=== PATIENT | male | born 1955 | race Caucasian/White ===

== ENCOUNTER → 2023-06-23 | Emergency (ER) | payer OTHER ==
--- NOTE | 2023-06-23 09:12 | EDPHYS ---
Physician Documentation [facility] Name: Giuliano Campos Age: 67 yrs Sex: Male : 1955 Arrival Date: 06/23/2023 Time: 08:25 Bed 6 Private MD: ED Physician Barbie Mills HPI: 06/23 08:42 This 67 yrs old Male presents to ER via Unassigned with complaints of Fall Injury, sp3 abrasion To Arm and left knee injury. 08:42 67-year-old male with a history of atrial fibrillation currently on Eliquis, sp3 hypertension, hyperlipidemia now presents to the ED with chief complaint mechanical fall while at a local hotel after he got up to use the restroom. Patient tripped on his shoe and then fell on his left knee and left forearm with abrasions to both and swollen knee. He denies any right-sided extremity injury, head injury, loss of consciousness, medical prodrome including chest pain, shortness of breath or syncope. Remainder of ROS is negative.. Historical: - Allergies: 08:49 No Known Allergies; ss - PMHx: 08:49 Atrial fibrillation; Hypertensive disorder; Asthma; Sleep apnea; ss - Immunization history:: Client reports receiving the 2nd dose of the Covid vaccine. - Social history:: Smoking status: Patient reports the use of cigarette tobacco products, <1/2 ppd. ROS: 08:43 Constitutional: Negative for fever, chills, and weight loss, Eyes: Negative for injury, sp3 pain, redness, and discharge, ENT: Negative for injury, pain, and discharge, Neck: Negative for injury, pain, and swelling, Respiratory: Negative for shortness of breath, cough, wheezing, and pleuritic chest pain, Abdomen/GI: Negative for abdominal pain, nausea, vomiting, diarrhea, and constipation, Back: Negative for injury and pain, Neuro: Negative for headache, weakness, numbness, tingling, and seizure, Psych: Negative for depression, anxiety, suicide ideation, homicidal ideation, and hallucinations, Allergy/Immunology: Negative for hives, rash, and allergies, Endocrine: Negative for neck swelling, polydipsia, polyuria, polyphagia, and marked weight changes, Hematologic/Lymphatic: Negative for swollen nodes, abnormal bleeding, and unusual bruising, 08:43 All other systems are negative, Exam: 08:44 Constitutional: This is a well developed, well nourished patient who is awake, alert, sp3 and in no acute distress. Head/Face: Normocephalic, atraumatic. Eyes: Pupils equal round and reactive to light, extra-ocular motions intact. Lids and lashes normal. Conjunctiva and sclera are non-icteric and not injected. Cornea within normal limits. Periorbital areas with no swelling, redness, or edema. Neck: Trachea midline, no thyromegaly or masses palpated, and no cervical lymphadenopathy. Supple, full range of motion without nuchal rigidity, or vertebral point tenderness. No Meningismus. Chest/axilla: Normal chest wall appearance and motion. Nontender with no deformity. No lesions are appreciated. Respiratory: Lungs have equal breath sounds bilaterally, clear to auscultation and percussion. No rales, rhonchi or wheezes noted. No increased work of breathing, no retractions or nasal flaring. Abdomen/GI: Soft, non-tender, with normal bowel sounds. No distension or tympany. No guarding or rebound. No evidence of tenderness throughout. Back: No spinal tenderness. No costovertebral tenderness. Full range of motion. Skin: Warm, dry with normal turgor. Normal color with no rashes, no lesions, and no evidence of cellulitis. Neuro: Awake and alert, GCS 15, oriented to person, place, time, and situation. Cranial nerves II-XII grossly intact. Motor strength 5/5 in all extremities. Sensory grossly intact. Cerebellar exam normal. Normal gait. Psych: Awake, alert, with orientation to person, place and time. Behavior, mood, and affect are within normal limits. 08:44 Cardiovascular: Patient is in an irregular rhythm consistent with atrial fibrillation., 08:44 Musculoskeletal/extremity: Multiple abrasions to the left forearm with no laceration or repair needed. Mild abrasion to the left knee over the patella and mild joint effusion. Patient is ambulatory with normal drawer signs/tests, normal distal neurovascular exam and normal motor and sensory exams.. 09:10 ECG was reviewed by the Attending Physician. EKG demonstrates atrial fibrillation with sp3 a rate of 70 bpm with no P waves seen however fairly regular rhythm. Normal intervals, normal QRS, slightly leftward axis and nonspecific diffuse ST/T changes without evidence of acute ischemia. Vital Signs: 08:47 BP 125 / 69; Pulse 74; Resp 16; Temp 98.1(TE); Pulse Ox 92% ; Weight 146.51 kg; Height ss 5 ft. 10 in. ; Pain 0/10; 08:47 Body Mass Index 46.35 (146.51 kg, 177.8 cm) ss 08:47 Pain Scale: Adult ss MDM: 08:36 Patient medically screened. sp3 08:45 Data reviewed: vital signs, nurses notes, EKG. ED course: 67-year-old male with sp3 mechanical fall with mild extremity injuries. Abrasions will be cleaned and dressed. Left knee effusion will be wrapped with compression dressing. X-ray not indicated. Will obtain an EKG to ensure no other abnormalities given his recent diagnosis of atrial fibrillation. Patient reports not missing doses of Eliquis. Neurological exam is completely normal. If EKG is normal, we will safely discharge patient home with PCP follow-up back at his hometown of [place].. 09:10 ED course: EKG demonstrates no significant findings and we will safely discharge sp3 patient home at this time.. 06/23 08:42 Order name: EKG; Complete Time: 08:43 sp3 06/23 08:42 Order name: EKG - Nurse/Tech; Complete Time: 09:04 sp3 06/23 08:42 Order name: Donell Wrap: left knee; Complete Time: 09:33 sp3 06/23 08:42 Order name: Wound dressing: left elbow and knee; Complete Time: 09:33 sp3 Administered Medications: No medications were administered Disposition Summary: 06/23/23 09:12 Discharge Ordered Notes: Location: Home sp3 Condition: Stable sp3 Diagnosis - Knee effusion, abrasions, mechanical ground-level fall sp3 Followup: sp3 - With: Private Physician - When: Upon discharge from the Emergency Department - Reason: Continuance of care Discharge Instructions: - Discharge Summary Sheet sp3 - Abrasion sp3 - Knee Effusion sp3 Forms: - Medication Reconciliation Form sp3 - Thank You Letter sp3 - Antibiotic Education sp3 - Prescription Opioid Use sp3 - Patient Portal Instructions sp3 - Leadership Thank You Letter sp3 Prescriptions: - Diclofenac Sodium 75 mg Oral Tablet Sustained Release - take 1 tablet ORAL route 2 times per day; 30 tablet; Refills: 0, Product sp3 Selection Permitted Signatures: Kala Porras, CINDI RN ss Barbie Mills, MD BETTENCOURT sp3
--- NOTE | 2023-06-23 09:12 | ER ---
Nurse's Notes [facility] Name: Giuliano Campos Age: 67 yrs Sex: Male : 1955 Arrival Date: 06/23/2023 Time: 08:25 Bed 6 Private MD: Diagnosis: Knee effusion, abrasions, mechanical ground-level fall Presentation: 06/23 08:47 Chief complaint: Patient states: Woke up at 4 this am to use the restroom and tripped ss over a shoe. Denies hitting head. C/o pain and swelling to L knee. Abrasions and small skin tear noted to L forearm. Coronavirus screen: Client denies travel out of the [place] in the last 14 days. Ebola Screen: Patient denies exposure to infectious person. Patient denies travel to an Ebola-affected area in the 21 days before illness onset. Initial Sepsis Screen: Does the patient meet any 2 criteria? No. Patient's initial sepsis screen is negative. Does the patient have a suspected source of infection? No. Patient's initial sepsis screen is negative. Risk Assessment: Do you want to hurt yourself or someone else? Patient reports no desire to harm self or others. Onset of symptoms was June 23, 2023. 08:47 Method Of Arrival: Ambulatory ss 08:47 Acuity: ROCK 3 ss Historical: - Allergies: 08:49 No Known Allergies; ss - PMHx: 08:49 Atrial fibrillation; Hypertensive disorder; Asthma; Sleep apnea; ss - Immunization history:: Client reports receiving the 2nd dose of the Covid vaccine. - Social history:: Smoking status: Patient reports the use of cigarette tobacco products, <1/2 ppd. Screenin:02 [facility] ED Fall Risk Assessment (Adult) Score/Fall Risk Level 0 - 2 = Low Risk hb Oriented to surroundings, Maintained a safe environment, Educated pt \T\ family on fall prevention, incl call for assistance when getting out of bed. Abuse screen: Denies threats or abuse. Denies injuries from another. Nutritional screening: No deficits noted. Tuberculosis screening: No symptoms or risk factors identified. Assessment: 09:02 General: Appears in no apparent distress. Behavior is calm, cooperative. Pain: Pain hb currently is 1 out of 10 on a pain scale. Neuro: Level of Consciousness is awake, alert, obeys commands, Oriented to person, place, time, situation. Cardiovascular: Patient's skin is warm and dry. Respiratory: Respiratory effort is even, unlabored, Respiratory pattern is regular, symmetrical. GI: No signs and/or symptoms were reported involving the gastrointestinal system. : No signs and/or symptoms were reported regarding the genitourinary system. EENT: No signs and/or symptoms were reported regarding the EENT system. Derm: Skin is pink, warm \T\ dry. Wound noted Other: linear skin tear to left forearm, abrasion to left knee. Bleeding controlled. Musculoskeletal: No signs and/or symptoms reported regarding the musculoskeletal system. Vital Signs: 08:47 BP 125 / 69; Pulse 74; Resp 16; Temp 98.1(TE); Pulse Ox 92% ; Weight 146.51 kg; Height ss 5 ft. 10 in. ; Pain 0/10; 08:47 Body Mass Index 46.35 (146.51 kg, 177.8 cm) ss 08:47 Pain Scale: Adult ED Course: 08:30 Patient arrived in ED. mg5 08:33 Barbie Mills MD is Attending Physician. sp3 08:49 Triage completed. ss 08:49 Arm band placed on right wrist. ss 09:02 Patient has correct armband on for positive identification. Provided Education on: hb wound care. 09:02 No provider procedures requiring assistance completed. Patient did not have IV access hb during this emergency room visit. 09:31 Spring Polanco, RN is Primary Nurse. hb Administered Medications: No medications were administered Medication: 09:02 VIS not applicable for this client. hb Outcome: 09:12 Discharge ordered by . sp3 09:33 Discharged to home ambulatory, 09:33 Condition: stable 09:33 Discharge instructions given to patient, Instructed on discharge instructions, follow up and referral plans. medication usage, wound care, Demonstrated understanding of instructions, follow-up care, medications, wound care, Prescriptions given X 1, 09:33 Patient left the ED. hb Signatures: Kala Porras RN RN Spring Polanco, RN RN Barbie Mills MD MD sp3 Tammy Suarez mg5
[2023-06-23 09:42] VITALS: BP 125/69; TEMP 98.1; O2SAT 92
--- NOTE | 2023-06-24 15:01 | EKG ---
Test Date: 2023-06-23 Test Time: 09:03:57 Juvenile Probation Officer: YAYO MEASUREMENT RESULTS: Intervals: Rate: 70 NM: 180 QRSD: 96 QT: 416 QTc: 449 [place]: P: 81 NM: 180 QRS: -41 T: 52 INTERPRETIVE STATEMENTS: Normal sinus rhythm with sinus arrhythmia Left axis deviation Pulmonary disease pattern Abnormal ECG No previous ECG available for comparison Electronically Signed On 06-24-23 14:58:27 PULPIT OPERATOR by Bryant Sotelo
== END ==
LOC: ER 08:25
DX: M25.462 Effusion, left knee (principal); S80.212A Abrasion, left knee, initial encounter; S51.812A Laceration without foreign body of left forearm, initial encounter; W18.30XA Fall on same level, unspecified, initial encounter; I10 Essential (primary) hypertension; Z72.0 Tobacco use
CPT/HCPCS: 93005